=== PATIENT | female | born 1955 | race African-American/Black ===

== ENCOUNTER 2017-05-04 20:25 | Emergency (ER) | payer MEDICARE, OTHER ==
[~2017-05-04] VITALS: Ht 172.7 cm; Wt 100.0 kg
[~2017-05-04 20:25] MED LIST: ASPI-1159 PO; BENA1TAB18 PO; CHOL100046 PO; GABA-531 PO; GLYB5TAB7 PO; HYDR-523 PO; IBUP-2029 PO; INSU3INS6 SUBCUT; METF10002 PO; METHOCARBAMOL PO; METO10TA3 PO; NAPR500T7 PO; OMEP40CA34 PO; ONDA4TAB21 PO; PRAV40TA58 PO; ROSUVASTATIN CALCIUM PO; WOMEN S PROBIOTIC PO; [UNRECOGNIZED DRUG - OTHER] PO
[2017-05-04] MEDS ORDERED: LEVETIRACETAM 500MG PREMIX 100 ML IV ONE (22:00)
[2017-05-04 23:33] LABS: BASOPHILS % 0.9 % (0.0-2.0); EOSINOPHILS % 2.3 % (0.0-5.0); HEMATOCRIT. 38.4 % (36.0-48.0); HEMOGLOBIN. 13.1 g/dL (12.0-16.0); LYMPHOCYTES % 31.6 % (20.0-50.0); MEAN CORPUSCULAR HEMOGLOBIN 30.3 pg (28.0-32.0); MEAN CORPUSCULAR VOLUME 88.8 fL (81.0-99.0); MEAN PLATELET VOLUME 9.9 fl (7.4-10.4); MONOCYTES % 7.6 % (2.0-8.0); NEUTROPHILS % 57.6 % (40.0-76.0); PLATELET 196 x1000/uL (130-400); RED BLOOD CELL COUNT 4.32 mill/uL (4.2-5.4); RED CELL DISTRIBUTION WIDTH 13.5 % (11.6-14.6)
[2017-05-04 23:43] LABS: AMMONIA 39 uMol/L (<32)
[2017-05-04 23:47] LABS: CARBON DIOXIDE 25 mEq/L (21-32); CHLORIDE 105 mEq/L (98-107); CREATINE KINASE 114 IU/L (26-192)
[2017-05-05] LABS: CLARITY URINE CLOUDY (CLEAR); COLOR URINE YELLOW (YELLOW); GLUCOSE URINE 3+ (NEGATIVE); KETONES URINE NEGATIVE (NEGATIVE); LEUKOCYTE ESTERASE URINE 3+ (NEGATIVE); NITRITE URINE NEGATIVE (NEGATIVE); OCCULT BLOOD URINE 2+ (NEGATIVE); PROTEIN URINE 2+ (NEGATIVE)
[2017-05-05] MEDS ORDERED: LEVOFLOXACIN 750MG PREMIX 150 ML IV ONE (00:30)
[2017-05-05] MEDS ORDERED: ACETAMINOPHEN WITH CODEINE 300/30MG TABLET PO ONE (00:30)
[2017-05-05] MEDS ORDERED: ACETAMINOPHEN 325MG TABLET PO ONE (00:45)
[2017-05-05 01:42] VITALS: BP 132/64
== END 2017-05-05 02:32 | disposition home or self-care (01) ==
LOC: ER 20:30
DX: R56.9 Unspecified convulsions (principal); N28.9 Disorder of kidney and ureter, unspecified; N30.00 Acute cystitis without hematuria; E11.9 Type 2 diabetes mellitus without complications; J44.9 Chronic obstructive pulmonary disease, unspecified; I10 Essential (primary) hypertension; E78.00 Pure hypercholesterolemia, unspecified; Z79.82 Long term (current) use of aspirin; Z79.4 Long term (current) use of insulin; Z88.0 Allergy status to penicillin; Z88.5 Allergy status to narcotic agent; Z86.73 Personal history of transient ischemic attack (TIA), and cerebral infarction without residual deficits; Z95.0 Presence of cardiac pacemaker
CPT/HCPCS: 36415; 70450; 71010; 80053; 81001; 82140; 82550; 85025; 85610; 93005; 96365; 96366; 96367; 99285; J1953; J1956; 81003

== ENCOUNTER 2018-06-10 22:39 | Inpatient (IN) | payer MEDICARE, OTHER ==
[~2018-06-10] VITALS: Ht 172.7 cm; Wt 106.1 kg
[~2018-06-10 22:39] MED LIST changes: +METF-416 PO; -METF10002 PO
[2018-06-10 23:54] LABS: BG BASE EXCESS 2.8 mmol/L (-2.0-2.0); BG DEOXYHEMOGLOBIN 2.7 % (0.0-5.0); BG FRACTION INSPIRED OXYGEN 21; BG HCO3 ACT 28.4 mmol/L (22.0-26.0); BG METHEMOGLOBIN 0.1 % (0.0-1.5); BG OXYGEN SATURATION 97.3 % (92.0-98.5); BG OXYHEMOGLOBIN 96.2 % (94.0-97.0); BG PCO2 47.6 mmHg (35.0-45.0); BG PH 7.393 (7.350-7.450); BG PO2 101.8 mmHg (75.0-100.0); BG SAMPLE SITE RIGHT RADIAL; BG TOTAL HEMOGLOBIN 12.9 g/dL (12.0-18.0); BG VENT MODE ROOM AIR
[2018-06-11 00:06] LABS: BASOPHILS % 0.7 % (0.0-2.0); EOSINOPHILS % 3.2 % (0.0-5.0); HEMATOCRIT. 39.9 % (36.0-48.0); HEMOGLOBIN. 13.1 g/dL (12.0-16.0); LYMPHOCYTES % 44.3 % (20.0-50.0); MEAN CORPUSCULAR HEMOGLOBIN 29.3 pg (28.0-32.0); MEAN CORPUSCULAR VOLUME 89.5 fL (81.0-99.0); MEAN PLATELET VOLUME 9.9 fl (7.4-10.4); MONOCYTES % 9.3 % (2.0-8.0); NEUTROPHILS % 42.5 % (40.0-76.0); PLATELET 170 x1000/uL (130-400); RED BLOOD CELL COUNT 4.46 mill/uL (4.2-5.4); RED CELL DISTRIBUTION WIDTH 13.6 % (11.6-14.6)
[2018-06-11 00:12] LABS: CHLORIDE 105 mEq/L (98-107)
[2018-06-11 00:17] LABS: PROTHROMBIN TIME 10.2 sec (9.1-11.1)
[2018-06-11 00:19] LABS: ETHANOL BLOOD < 10 mg/dL
[2018-06-11] MEDS ORDERED: ACETAMINOPHEN 500MG TABLET PO ONE (01:45)
[2018-06-11 01:52] LABS: CLARITY URINE CLEAR (CLEAR); COLOR URINE YELLOW (YELLOW); KETONES URINE NEGATIVE (NEGATIVE); LEUKOCYTE ESTERASE URINE NEGATIVE (NEGATIVE); NITRITE URINE NEGATIVE (NEGATIVE); OCCULT BLOOD URINE 2+ (NEGATIVE); PH URINE 6.5 (4.5-8.0); PROTEIN URINE TRACE (NEGATIVE); SPECIFIC GRAVITY URINE 1.018 (1.005-1.030)
[2018-06-11 02:01] LABS: *COCAINE SCREEN URINE NEGATIVE (NEGATIVE); METHADONE URINE SCREEN NEGATIVE (NEGATIVE)
[2018-06-11 02:02] LABS: *AMPHETAMINES SCREEN URINE NEGATIVE (NEGATIVE); *BARBITURATES SCREEN URINE NEGATIVE (NEGATIVE); *BENZODIAZEPINES SCREEN URINE NEGATIVE (NEGATIVE); CANNABINOID URINE SCREEN NEGATIVE (NEGATIVE); OPIATES URINE SCREEN PRESUMTIVE POSITIVE (NEGATIVE); PHENCYCLIDINE URINE SCREEN NEGATIVE (NEGATIVE)
[2018-06-11] MEDS ORDERED: ALBUTEROL (0.5%) 2.5MG/0.5ML NEB HHN ONE (02:15)
[2018-06-11 04:22] VITALS: BP 137/56
[2018-06-11] MEDS ORDERED: HYDR-4009 PO (05:22)
[2018-06-11] MEDS ORDERED: LEVE1000 PO (05:23)
[2018-06-11] MEDS ORDERED: LYRICA PO (05:25)
[2018-06-11] MEDS ORDERED: INSU100I28 SQ (05:30)
[2018-06-11 05:31] VITALS: BP 137/56
[2018-06-11] MEDS ORDERED: DEXTROSE 50% WATER 50ML SYRINGE IV PRN (06:15)
[2018-06-11] MEDS: BLOOD SUGAR DIAGNOSTIC STRIP TEST SCH ×4 (07:20→21:00)
[2018-06-11] MEDS: OMEPRAZOLE 20MG CAPSULE EXTENDED RELEASE PO SCH (07:29)
[2018-06-11] MEDS ORDERED: LEVETIRACETAM 500MG TABLET PO NR (07:45)
[2018-06-11] MEDS: INSULIN LISPRO 100 UNITS/ML SUBCUT SCH ×4 (08:09→21:00)
[2018-06-11 08:46] VITALS: BP 102/51
[2018-06-11] MEDS ORDERED: ASPIRIN 81MG TABLET PO SCH (09:00)
[2018-06-11] MEDS ORDERED: LEVETIRACETAM 500MG TABLET PO SCH (09:00)
[2018-06-11] MEDS: INSULIN GLARGINE UD 100 UNITS/ML SYR SUBCUT SCH ×2 (10:49→22:06)
[2018-06-11 12:03] LABS: HEMATOCRIT 36.9 % (36.0-48.0); MEAN CORPUSCULAR HEMOGLOBIN 29.2 pg (28.0-32.0); MEAN CORPUSCULAR VOLUME 89.8 fL (81.0-99.0); PLATELET 165 x1000/uL (130-400); RED BLOOD CELL COUNT 4.11 mill/uL (4.2-5.4); RED CELL DISTRIBUTION WIDTH 13.9 % (11.6-14.6)
[2018-06-11 12:13] VITALS: BP 107/61
[2018-06-11] MEDS: HYDROCODONE/ACETAMINOPHEN 10/325MG TABLET PO PRN (12:46)
[2018-06-11] MEDS: CLOPIDOGREL 75MG TABLET PO SCH (16:15)
[2018-06-11 16:50] VITALS: BP 102/55
[2018-06-11] MEDS ORDERED: MEDICATION NOT ON FORMULARY EA (Pravastatin Sodium 1 TAB) PO SCH (17:00)
[2018-06-11] MEDS: ONDANSETRON 4MG ODT PO PRN (17:48)
[2018-06-11 20:00] VITALS: BP 108/58
[2018-06-11] MEDS: ATORVASTATIN CALCIUM 10MG TABLET PO SCH (22:05)
[2018-06-11] MEDS: LEVETIRACETAM 500MG/5ML CUP PO SCH (22:05)
[2018-06-12 00:04] VITALS: BP 106/59
[2018-06-12 04:17] VITALS: BP 117/70
[2018-06-12 06:51] LABS: HEMATOCRIT 37.2 % (36.0-48.0); HEMOGLOBIN 12.2 g/dL (12.0-16.0); MEAN CORPUSCULAR HEMOGLOBIN 29.4 pg (28.0-32.0); MEAN CORPUSCULAR VOLUME 89.4 fL (81.0-99.0); PLATELET 164 x1000/uL (130-400); RED BLOOD CELL COUNT 4.16 mill/uL (4.2-5.4); RED CELL DISTRIBUTION WIDTH 13.9 % (11.6-14.6)
[2018-06-12] MEDS: BLOOD SUGAR DIAGNOSTIC STRIP TEST SCH ×4 (07:02→21:35)
[2018-06-12] MEDS: OMEPRAZOLE 20MG CAPSULE EXTENDED RELEASE PO SCH (07:02)
[2018-06-12] MEDS: INSULIN LISPRO 100 UNITS/ML SUBCUT SCH ×4 (07:50→21:34)
[2018-06-12 09:36] LABS: T4 FREE 1.14 ng/dL (0.76-1.46)
[2018-06-12] MEDS: INSULIN GLARGINE UD 100 UNITS/ML SYR SUBCUT SCH ×2 (09:44→21:34)
[2018-06-12] MEDS: HYDROCODONE/ACETAMINOPHEN 10/325MG TABLET PO PRN ×2 (09:56→20:41)
[2018-06-12] MEDS: AMLODIPINE 5MG TABLET PO SCH (09:57)
[2018-06-12] MEDS: ASPIRIN 81MG TABLET PO SCH (09:57)
[2018-06-12] MEDS: CLOPIDOGREL 75MG TABLET PO SCH (09:57)
[2018-06-12] MEDS: LEVETIRACETAM 500MG/5ML CUP PO SCH ×2 (09:59→21:35)
[2018-06-12] MEDS ORDERED: IOHEXOL-350 100 ML BOTTLE ONE (14:10)
[2018-06-12] MEDS: ONDANSETRON 4MG ODT PO PRN (15:10)
[2018-06-12] MEDS ORDERED: SODIUM CHLORIDE 0.45% 1,000 ML IV SCH (16:15)
[2018-06-12 20:00] VITALS: BP 104/63
[2018-06-12] MEDS: ATORVASTATIN CALCIUM 10MG TABLET PO SCH (21:35)
[2018-06-13] VITALS (7 sets, daily range): BP systolic 107–134; BP diastolic 60–72
[2018-06-13] MEDS: BLOOD SUGAR DIAGNOSTIC STRIP TEST SCH ×3 (06:34→17:35)
[2018-06-13] MEDS: OMEPRAZOLE 20MG CAPSULE EXTENDED RELEASE PO SCH (06:34)
[2018-06-13] MEDS: INSULIN LISPRO 100 UNITS/ML SUBCUT SCH ×3 (06:49→17:35)
[2018-06-13] MEDS ORDERED: CHOLECALCIFEROL (D3) 1000 UNIT TABLET PO SCH (09:00)
[2018-06-13 09:35] LABS: HEMATOCRIT 40.3 % (36.0-48.0); HEMOGLOBIN 13.3 g/dL (12.0-16.0); MEAN CORPUSCULAR HEMOGLOBIN 29.4 pg (28.0-32.0); MEAN CORPUSCULAR VOLUME 88.9 fL (81.0-99.0); PLATELET 192 x1000/uL (130-400); RED BLOOD CELL COUNT 4.53 mill/uL (4.2-5.4); RED CELL DISTRIBUTION WIDTH 13.9 % (11.6-14.6)
[2018-06-13] MEDS: ONDANSETRON 4MG ODT PO PRN (09:41)
[2018-06-13] MEDS: LEVETIRACETAM 500MG/5ML CUP PO SCH (09:42)
[2018-06-13] MEDS: ASPIRIN 81MG TABLET PO SCH (09:43)
[2018-06-13] MEDS: CLOPIDOGREL 75MG TABLET PO SCH (09:43)
[2018-06-13] MEDS: AMLODIPINE 5MG TABLET PO SCH (09:43)
[2018-06-13] MEDS: INSULIN GLARGINE UD 100 UNITS/ML SYR SUBCUT SCH (10:20)
== END 2018-06-13 20:45 | disposition home health service (06) | DRG 101 ==
LOC: ER 22:39 → 6WST 06-11 01:49 → EDBEDREQDT 06-11 02:27 → EDBEDREQTM 06-11 02:27 → EDBEDREQ 06-11 02:27 → ENRESERV 06-11 03:21 → 6WST 06-11 04:45
PROVIDERS: ADMIT Internal Medicine; ATTEND Internal Medicine
DX: G40.909 Epilepsy, unspecified, not intractable, without status epilepticus (principal); D68.59 Other primary thrombophilia; E66.2 Morbid (severe) obesity with alveolar hypoventilation; I69.354 Hemiplegia and hemiparesis following cerebral infarction affecting left non-dominant side; E11.22 Type 2 diabetes mellitus with diabetic chronic kidney disease; N18.9 Chronic kidney disease, unspecified; I12.9 Hypertensive chronic kidney disease with stage 1 through stage 4 chronic kidney disease, or unspecified chronic kidney disease; R31.9 Hematuria, unspecified; M25.519 Pain in unspecified shoulder; I65.22 Occlusion and stenosis of left carotid artery; J44.9 Chronic obstructive pulmonary disease, unspecified; Z95.0 Presence of cardiac pacemaker; Z79.82 Long term (current) use of aspirin; Z79.4 Long term (current) use of insulin; Z68.35 Body mass index [BMI] 35.0-35.9, adult; Z88.0 Allergy status to penicillin; Z88.5 Allergy status to narcotic agent; Z79.899 Other long term (current) drug therapy
CPT/HCPCS: 36415; 36600; 70498; 71045; 80048; 80061; 80305; 82140; 82375; 82542; 82805; 82962; 83036; 83605; 84439; 84443; 84484; 85027; 92523; 93005; 93306; 93880; 93970; 94640; 97116; 97162; 97530; 99285; G0482; J1815; J7611; Q0162; Q9967

== ENCOUNTER 2019-06-04 19:25 | Inpatient (IN) | payer MEDICARE, MEDICAID ==
[~2019-06-04] VITALS: Ht 162.6 cm; Wt 116.6 kg
[~2019-06-04 19:25] MED LIST changes: -ASPI-1159 PO; +ASPI-1393 PO; -GABA-531 PO; +HYDR-4009 PO; -HYDR-523 PO; -IBUP-2029 PO; +INSU100I28 SQ; +LEVE1000 PO; +LYRICA PO; -METF-416 PO; -METHOCARBAMOL PO; -METO10TA3 PO; -NAPR500T7 PO; -ROSUVASTATIN CALCIUM PO; -WOMEN S PROBIOTIC PO; -[UNRECOGNIZED DRUG - OTHER] PO
[2019-06-04] MEDS ORDERED: LEVETIRACETAM 1000MG/100ML 100 ML IV ONE ×2 (20:30)
[2019-06-04] MEDS ORDERED: SODIUM CHLORIDE 0.9% 1,000 ML IV ONE (20:30)
[2019-06-04 20:57] LABS: BASOPHILS % 0.5 % (0.0-2.0); EOSINOPHILS % 2.6 % (0.0-5.0); HEMATOCRIT. 40.9 % (36.0-48.0); HEMOGLOBIN. 13.4 g/dL (12.0-16.0); LYMPHOCYTES % 41.2 % (20.0-50.0); MEAN CORPUSCULAR HEMOGLOBIN 29.1 pg (28.0-32.0); MEAN CORPUSCULAR VOLUME 88.5 fL (81.0-99.0); MONOCYTES % 10.4 % (2.0-8.0); NEUTROPHILS % 45.3 % (40.0-76.0); PLATELET 157 x1000/uL (130-400); RED BLOOD CELL COUNT 4.62 mill/uL (4.2-5.4); RED CELL DISTRIBUTION WIDTH 14.6 % (11.6-14.6)
[2019-06-04 20:59] LABS: CHLORIDE 106 mEq/L (98-107)
[2019-06-04 21:02] LABS: PROTHROMBIN TIME 10.1 sec (9.6-11.0)
[2019-06-04 21:03] LABS: ETHANOL BLOOD < 10 mg/dL
[2019-06-04 21:06] LABS: LDL CHOLESTEROL 67 mg/dL (5-100)
[2019-06-04] MEDS ORDERED: HYDRALAZINE 20MG/ML VIAL IV ONE (21:15)
[2019-06-04] MEDS: LEVETIRACETAM 1000MG/100ML 100 ML IV NR ×2 (21:23→22:24)
[2019-06-04] MEDS ORDERED: KETOROLAC 15MG/ML VIAL IV ONE (22:15)
[2019-06-04] MEDS ORDERED: ASPIRIN 300MG SUPP PR ONE (22:15)
[2019-06-04] MEDS ORDERED: ONDANSETRON HCL 4MG/2ML INJ IV PRN (23:00)
[2019-06-04] MEDS ORDERED: DEXTROSE 50% WATER 50ML SYRINGE IV PRN (23:15)
[2019-06-04] MEDS ORDERED: LORAZEPAM 2MG/ML CPJ IV PRN (23:24)
[2019-06-04 23:25] LABS: CLARITY URINE CLEAR (CLEAR); COLOR URINE YELLOW (YELLOW); KETONES URINE NEGATIVE (NEGATIVE); LEUKOCYTE ESTERASE URINE 3+ (NEGATIVE); NITRITE URINE NEGATIVE (NEGATIVE); OCCULT BLOOD URINE TRACE (NEGATIVE); PH URINE 5.5 (4.5-8.0); PROTEIN URINE 1+ (NEGATIVE); SPECIFIC GRAVITY URINE 1.022 (1.005-1.030)
[2019-06-04] MEDS ORDERED: CLONIDINE 0.2MG TABLET PO PRN (23:25)
[2019-06-04 23:49] LABS: *AMPHETAMINES SCREEN URINE NEGATIVE (NEGATIVE); *BARBITURATES SCREEN URINE NEGATIVE (NEGATIVE)
[2019-06-04 23:50] LABS: *BENZODIAZEPINES SCREEN URINE NEGATIVE (NEGATIVE); *COCAINE SCREEN URINE NEGATIVE (NEGATIVE); CANNABINOID URINE SCREEN NEGATIVE (NEGATIVE); METHADONE URINE SCREEN NEGATIVE (NEGATIVE); OPIATES URINE SCREEN PRESUMTIVE POSITIVE (NEGATIVE)
[2019-06-04 23:51] LABS: PHENCYCLIDINE URINE SCREEN NEGATIVE (NEGATIVE)
[2019-06-05] MEDS ORDERED: IOHEXOL-350 100 ML BOTTLE ONE (02:05)
[2019-06-05 05:26] LABS: BASOPHILS % 0.6 % (0.0-2.0); EOSINOPHILS % 2.6 % (0.0-5.0); HEMATOCRIT. 40.3 % (36.0-48.0); HEMOGLOBIN. 13.3 g/dL (12.0-16.0); LYMPHOCYTES % 41.4 % (20.0-50.0); MONOCYTES % 10.6 % (2.0-8.0); NEUTROPHILS % 44.8 % (40.0-76.0); PLATELET 157 x1000/uL (130-400); RED BLOOD CELL COUNT 4.59 mill/uL (4.2-5.4); RED CELL DISTRIBUTION WIDTH 14.5 % (11.6-14.6)
[2019-06-05 05:30] LABS: CHLORIDE 110 mEq/L (98-107)
[2019-06-05 09:00] VITALS: BP 117/72
[2019-06-05] MEDS: INSULIN LISPRO 100 UNITS/ML SUBCUT SCH ×4 (09:00→21:32)
[2019-06-05] MEDS: BLOOD SUGAR DIAGNOSTIC STRIP TEST SCH ×4 (09:00→21:18)
[2019-06-05] MEDS: HEPARIN 5000 UNITS/ML VIAL SUBCUT SCH ×2 (10:31→21:18)
[2019-06-05 11:23] VITALS: BP 117/72
[2019-06-05 12:00] VITALS: BP 123/57
[2019-06-05] MEDS ORDERED: ASPIRIN 81MG EC TABLET PO SCH (13:30)
[2019-06-05] MEDS ORDERED: LEVETIRACETAM 500MG/5ML CUP PO SCH (13:30)
[2019-06-05 16:00] VITALS: BP 136/65
[2019-06-05 20:00] VITALS: BP 129/72
[2019-06-05] MEDS: ACETAMINOPHEN 325MG TABLET PO PRN (20:48)
[2019-06-05] MEDS: LEVETIRACETAM 500MG/5ML CUP PO SCH (21:18)
[2019-06-06 00:22] VITALS: BP 129/62
[2019-06-06] MEDS ORDERED: MORPHINE SULFATE 2 MG/ML CPJ (NOT FOR IM USE) IV NR (01:45)
[2019-06-06] MEDS ORDERED: INSULIN GLARGINE UD 100 UNITS/ML SYR SUBCUT NR (03:00)
[2019-06-06] MEDS ORDERED: ASPIRIN 325MG TABLET PO NR (03:30)
[2019-06-06 03:32] LABS: BASOPHILS % 0.5 % (0.0-2.0); EOSINOPHILS % 3.5 % (0.0-5.0); HEMATOCRIT. 38.6 % (36.0-48.0); HEMOGLOBIN. 12.7 g/dL (12.0-16.0); LYMPHOCYTES % 44.7 % (20.0-50.0); MEAN PLATELET VOLUME 9.4 fl (7.4-10.4); MONOCYTES % 9.4 % (2.0-8.0); NEUTROPHILS % 41.9 % (40.0-76.0); PLATELET 147 x1000/uL (130-400); RED BLOOD CELL COUNT 4.38 mill/uL (4.2-5.4)
[2019-06-06 04:22] VITALS: BP 125/52
[2019-06-06] MEDS: INSULIN LISPRO 100 UNITS/ML SUBCUT SCH ×2 (06:22→12:11)
[2019-06-06] MEDS: BLOOD SUGAR DIAGNOSTIC STRIP TEST SCH ×2 (06:25→12:08)
[2019-06-06 08:00] VITALS: BP 145/70
[2019-06-06] MEDS: LEVETIRACETAM 500MG/5ML CUP PO SCH (09:19)
[2019-06-06 11:28] LABS: PROTHROMBIN TIME 10.7 sec (9.6-11.0)
[2019-06-06] MEDS: HEPARIN 5000 UNITS/ML VIAL SUBCUT SCH (11:34)
[2019-06-06] MEDS: ACETAMINOPHEN 325MG TABLET PO PRN (16:41)
[2019-06-06 16:45] VITALS: BP 131/80
[2019-06-06] MEDS ORDERED: INSULIN GLARGINE UD 100 UNITS/ML SYR SUBCUT SCH (22:00)
[2019-06-07] MEDS ORDERED: INSULIN GLARGINE UD 100 UNITS/ML SYR SUBCUT SCH (10:00)
== END 2019-06-06 17:17 | disposition home or self-care (01) | DRG 101 ==
LOC: ER 19:25 → 5WST 22:52 → EDBEDREQ 22:55 → EDBEDREQSVC 06-05 05:40 → ENRESERV 06-05 07:08
PROVIDERS: ADMIT Internal Medicine; ATTEND Internal Medicine
DX: G40.409 Other generalized epilepsy and epileptic syndromes, not intractable, without status epilepticus (principal); Z86.73 Personal history of transient ischemic attack (TIA), and cerebral infarction without residual deficits; E78.5 Hyperlipidemia, unspecified; E11.9 Type 2 diabetes mellitus without complications; J45.909 Unspecified asthma, uncomplicated; Z88.0 Allergy status to penicillin; Z79.4 Long term (current) use of insulin; Z79.899 Other long term (current) drug therapy; I25.2 Old myocardial infarction
CPT/HCPCS: 36415; 70496; 71045; 80048; 80061; 80305; 80320; 81003; 82962; 83036; 83721; 83735; 84484; 93005; 96361; 96365; 96375; 99291; C1893; J0360; J1644; J1815; J1885; J1953; J7030; Q9967; G0480

== ENCOUNTER 2019-07-20 09:08 | Emergency (ER) | payer OTHER, MEDICAID ==
[~2019-07-20] VITALS: Ht 165.1 cm; Wt 109.0 kg
[~2019-07-20 09:08] MED LIST changes: -ASPI-1393 PO; +ASPI-1497 PO; +OMEP40CA12 PO; -OMEP40CA34 PO
[2019-07-20] MEDS ORDERED: ONDANSETRON HCL 4MG/2ML INJ IV STA (10:27)
[2019-07-20] MEDS ORDERED: MORPHINE SULFATE 4 MG/ML CPJ (NOT FOR IM USE) IV STA (10:27)
[2019-07-20 10:31] LABS: CLARITY URINE TURBID (CLEAR); COLOR URINE YELLOW (YELLOW); KETONES URINE NEGATIVE (NEGATIVE); LEUKOCYTE ESTERASE URINE 3+ (NEGATIVE); NITRITE URINE NEGATIVE (NEGATIVE); OCCULT BLOOD URINE 2+ (NEGATIVE); PROTEIN URINE 2+ (NEGATIVE); SPECIFIC GRAVITY URINE 1.017 (1.005-1.030)
[2019-07-20 10:32] LABS: BASOPHILS % 0.8 % (0.0-2.0); HEMATOCRIT. 41.3 % (36.0-48.0); HEMOGLOBIN. 13.4 g/dL (12.0-16.0); LYMPHOCYTES % 36.9 % (20.0-50.0); MEAN CORPUSCULAR VOLUME 89.5 fL (81.0-99.0); MEAN PLATELET VOLUME 10.3 fl (7.4-10.4); MONOCYTES % 7.9 % (2.0-8.0); NEUTROPHILS % 51.4 % (40.0-76.0); PLATELET 174 x1000/uL (130-400); RED BLOOD CELL COUNT 4.62 mill/uL (4.2-5.4); RED CELL DISTRIBUTION WIDTH 14.7 % (11.6-14.6)
[2019-07-20 10:34] LABS: CHLORIDE 107 mEq/L (98-107)
[2019-07-20] MEDS ORDERED: ONDANSETRON HCL 4MG/2ML INJ IV ONE (13:30)
[2019-07-20] MEDS ORDERED: MORPHINE SULFATE 4 MG/ML CPJ (NOT FOR IM USE) IV ONE (13:30)
[2019-07-20] MEDS ORDERED: LEVOFLOXACIN 500MG TABLET PO ONE (13:30)
[2019-07-20 13:48] VITALS: BP 123/82
== END 2019-07-20 14:27 | disposition short-term general hospital (02) ==
LOC: ER 09:51 → CANBEDREQ 15:18
DX: R07.89 Other chest pain (principal); I25.10 Atherosclerotic heart disease of native coronary artery without angina pectoris; J44.9 Chronic obstructive pulmonary disease, unspecified; E11.9 Type 2 diabetes mellitus without complications; I10 Essential (primary) hypertension; Z87.891 Personal history of nicotine dependence; Z79.82 Long term (current) use of aspirin; Z79.4 Long term (current) use of insulin; Z88.0 Allergy status to penicillin; E78.5 Hyperlipidemia, unspecified
CPT/HCPCS: 36415; 71045; 80053; 81003; 83690; 83880; 84484; 85025; 85379; 87086; 93005; 93970; 96374; 96375; 96376; 99285; J2270; J2405

== ENCOUNTER 2020-04-06 18:10 | Emergency (ER) | payer MEDICARE, MEDICAID ==
[~2020-04-06] VITALS: Ht 167.6 cm; Wt 113.0 kg
[2020-04-06] MEDS ORDERED: SODIUM CHLORIDE 0.9% 500 ML IV ONE (18:45)
[2020-04-06] MEDS ORDERED: LEVETIRACETAM 1000MG/100ML 100 ML IV ONE (18:45)
[2020-04-06 19:07] LABS: BASOPHILS % 0.9 % (0.0-2.0); EOSINOPHILS % 2.9 % (0.0-5.0); HEMATOCRIT. 41.9 % (36.0-48.0); HEMOGLOBIN. 13.8 g/dL (12.0-16.0); LYMPHOCYTES % 34.4 % (20.0-50.0); MEAN CORPUSCULAR HEMOGLOBIN 29.2 pg (28.0-32.0); MEAN CORPUSCULAR VOLUME 88.6 fL (81.0-99.0); MEAN PLATELET VOLUME 10.2 fl (7.4-10.4); MONOCYTES % 7.7 % (2.0-8.0); NEUTROPHILS % 54.1 % (40.0-76.0); PLATELET 168 x1000/uL (130-400); RED BLOOD CELL COUNT 4.73 mill/uL (4.2-5.4); RED CELL DISTRIBUTION WIDTH 14.5 % (11.6-14.6)
[2020-04-06 19:15] LABS: CHLORIDE 107 mEq/L (98-107)
[2020-04-06 20:31] LABS: CLARITY URINE CLEAR (CLEAR); COLOR URINE YELLOW (YELLOW); KETONES URINE NEGATIVE (NEGATIVE); LEUKOCYTE ESTERASE URINE TRACE (NEGATIVE); NITRITE URINE NEGATIVE (NEGATIVE); OCCULT BLOOD URINE 1+ (NEGATIVE); PH URINE 5.5 (4.5-8.0); PROTEIN URINE 1+ (NEGATIVE); UROBILINOGEN URINE 0.2 E.U./dL (0.2-1.0)
[2020-04-06] MEDS ORDERED: SULFAMETHOXAZOLE/TRIMETHOPRIM 800/160MG TABLET PO NR (22:00)
[2020-04-06 22:20] VITALS: BP 140/61
== END 2020-04-06 22:21 | disposition home or self-care (01) ==
LOC: ER 18:10
DX: R56.9 Unspecified convulsions (principal); N39.0 Urinary tract infection, site not specified; J44.1 Chronic obstructive pulmonary disease with (acute) exacerbation; I10 Essential (primary) hypertension; E11.9 Type 2 diabetes mellitus without complications; Z88.0 Allergy status to penicillin; Z79.899 Other long term (current) drug therapy; Z79.82 Long term (current) use of aspirin
CPT/HCPCS: 36415; 80053; 81003; 85025; 93005; 96365; 99284; J1953; J7030

== ENCOUNTER 2021-05-07 18:13 | Inpatient (IN) | payer OTHER, MEDICAID ==
[~2021-05-07] VITALS: Ht 170.2 cm; Wt 115.2 kg
[~2021-05-07 18:13] MED LIST changes: -OMEP40CA12 PO; +OMEP40CA20 PO
[2021-05-07] MEDS ORDERED: LEVETIRACETAM 1000MG PREMIX 100 ML IV ONE (19:45)
[2021-05-07 20:43] LABS: BASOPHILS % 0.6 % (0.0-2.0); EOSINOPHILS % 1.6 % (0.0-5.0); HEMATOCRIT. 40.7 % (36.0-48.0); HEMOGLOBIN. 13.4 g/dL (12.0-16.0); LYMPHOCYTES % 37.7 % (20.0-50.0); MEAN CORPUSCULAR HEMOGLOBIN 29.9 pg (28.0-32.0); MEAN CORPUSCULAR VOLUME 90.7 fL (81.0-99.0); MEAN PLATELET VOLUME 9.9 fl (7.4-10.4); MONOCYTES % 7.8 % (2.0-8.0); NEUTROPHILS % 52.3 % (40.0-76.0); PLATELET 173 x1000/uL (130-400); RED BLOOD CELL COUNT 4.49 mill/uL (4.2-5.4); RED CELL DISTRIBUTION WIDTH 14.7 % (11.6-14.6)
[2021-05-07 20:48] LABS: CHLORIDE 108 mEq/L (98-107)
[2021-05-07 20:51] LABS: PROTHROMBIN TIME 11.2 sec (9.6-11.0)
[2021-05-07 20:53] LABS: ETHANOL BLOOD < 10 mg/dL
[2021-05-07] MEDS ORDERED: IOHEXOL-350 100 ML BOTTLE ONE (21:59)
[2021-05-07] MEDS ORDERED: ACETAMINOPHEN 325MG TABLET PO ONE (22:15)
[2021-05-08] MEDS ORDERED: HYDROCODONE/ACETAMINOPHEN 5/325MG TABLET PO ONE (01:45)
[2021-05-08 02:38] LABS: CLARITY URINE CLEAR (CLEAR); COLOR URINE YELLOW (YELLOW); KETONES URINE NEGATIVE (NEGATIVE); LEUKOCYTE ESTERASE URINE NEGATIVE (NEGATIVE); NITRITE URINE NEGATIVE (NEGATIVE); OCCULT BLOOD URINE TRACE (NEGATIVE); PH URINE 5.5 (4.5-8.0); PROTEIN URINE 2+ (NEGATIVE); SPECIFIC GRAVITY URINE 1.049 (1.005-1.030)
[2021-05-08 02:47] LABS: *AMPHETAMINES SCREEN URINE NEGATIVE (NEGATIVE); *BARBITURATES SCREEN URINE NEGATIVE (NEGATIVE); *BENZODIAZEPINES SCREEN URINE NEGATIVE (NEGATIVE); *COCAINE SCREEN URINE NEGATIVE (NEGATIVE)
[2021-05-08 02:48] LABS: CANNABINOID URINE SCREEN PRESUMTIVE POSITIVE (NEGATIVE); METHADONE URINE SCREEN NEGATIVE (NEGATIVE); OPIATES URINE SCREEN NEGATIVE (NEGATIVE); PHENCYCLIDINE URINE SCREEN NEGATIVE (NEGATIVE)
[2021-05-08 11:00] VITALS: BP 113/61
[2021-05-08] MEDS ORDERED: ATEN-42 PO (11:12)
[2021-05-08] MEDS ORDERED: [UNRECOGNIZED DRUG - OTHER] PO (11:12)
[2021-05-08] MEDS ORDERED: OMEP20CA14 PO (11:12)
[2021-05-08] MEDS ORDERED: LIRA0.6P2 SQ (11:12)
[2021-05-08 12:00] VITALS: BP 133/61
[2021-05-08] MEDS ORDERED: ACETAMINOPHEN 325MG TABLET PO PRN (12:00)
[2021-05-08] MEDS ORDERED: LORAZEPAM 2MG/ML CPJ IV PRN (12:00)
[2021-05-08] MEDS: INSULIN LISPRO 100 UNITS/ML SUBCUT SCH ×3 (12:06→21:15)
[2021-05-08] MEDS: BLOOD SUGAR DIAGNOSTIC STRIP TEST SCH ×3 (12:06→21:16)
[2021-05-08] MEDS ORDERED: DEXTROSE 50% WATER 50ML SYRINGE IV PRN (12:15)
[2021-05-08 16:00] VITALS: BP 140/70
[2021-05-08] MEDS ORDERED: LYRICA 150 MG PO SCH (18:15)
[2021-05-08] MEDS: TRAMADOL 50MG TABLET PO PRN (18:26)
[2021-05-08] MEDS ORDERED: NALOXONE HCL 0.4MG/ML VIAL IV PRN (19:00)
[2021-05-08 20:00] VITALS: BP 101/57
[2021-05-08] MEDS ORDERED: LEVETIRACETAM 500MG TABLET PO SCH ×2 (21:00)
[2021-05-08] MEDS ORDERED: INSULIN GLARGINE HUM REC ANLOG 50 UNIT SQ SCH (21:00)
[2021-05-08] MEDS ORDERED: [UNRECOGNIZED DRUG - OTHER] SQ SCH (21:00)
[2021-05-08] MEDS ORDERED: ATORVASTATIN CALCIUM 10MG TABLET PO SCH (21:00)
[2021-05-08] MEDS: LEVETIRACETAM 500MG TABLET PO SCH (21:12)
[2021-05-08] MEDS: LEVETIRACETAM 250MG TABLET PO SCH (21:13)
[2021-05-08] MEDS: PREGABALIN 75MG CAPSULE PO SCH (21:14)
[2021-05-08 22:00] VITALS: BP 115/59
[2021-05-08] MEDS ORDERED: INSULIN GLARGINE UD 100 UNITS/ML SYR SUBCUT SCH (22:00)
[2021-05-09] VITALS (11 sets, daily range): BP systolic 101–127; BP diastolic 52–69
[2021-05-09] MEDS: TRAMADOL 50MG TABLET PO PRN ×2 (04:20→10:28)
[2021-05-09] MEDS: BLOOD SUGAR DIAGNOSTIC STRIP TEST SCH ×3 (07:30→17:33)
[2021-05-09] MEDS ORDERED: OMEPRAZOLE 20MG CAPSULE EXTENDED RELEASE PO SCH (09:00)
[2021-05-09] MEDS ORDERED: INSULIN GLARGINE HUM REC ANLOG 40 UNIT SUBCUT SCH (09:00)
[2021-05-09] MEDS ORDERED: [UNRECOGNIZED DRUG - OTHER] PO SCH (09:00)
[2021-05-09] MEDS: LEVETIRACETAM 250MG TABLET PO SCH (09:00)
[2021-05-09] MEDS ORDERED: [UNRECOGNIZED DRUG - OTHER] SUBCUT SCH (09:00)
[2021-05-09] MEDS ORDERED: MEDICATION NOT ON FORMULARY EA (Levetiracetam (Keppra) 1,000 MG) PO SCH (09:00)
[2021-05-09] MEDS ORDERED: FAMOTIDINE 20MG TABLET PO SCH (09:00)
[2021-05-09] MEDS ORDERED: ONDANSETRON 4MG ODT PO SCH (09:00)
[2021-05-09] MEDS ORDERED: ATENOLOL 25MG TABLET PO SCH (09:00)
[2021-05-09] MEDS ORDERED: ASPIRIN 81MG EC TABLET PO SCH (09:00)
[2021-05-09] MEDS ORDERED: INSULIN GLARGINE UD 100 UNITS/ML SYR SUBCUT SCH (10:00)
[2021-05-09] MEDS: LEVETIRACETAM 500MG TABLET PO SCH (10:25)
[2021-05-09] MEDS: PREGABALIN 75MG CAPSULE PO SCH (10:27)
[2021-05-09] MEDS: INSULIN LISPRO 100 UNITS/ML SUBCUT SCH ×3 (10:30→18:29)
[2021-05-09 12:31] LABS: BASOPHILS % 0.7 % (0.0-2.0); EOSINOPHILS % 2.8 % (0.0-5.0); HEMATOCRIT. 37.3 % (36.0-48.0); HEMOGLOBIN. 12.1 g/dL (12.0-16.0); LYMPHOCYTES % 33.7 % (20.0-50.0); MEAN CORPUSCULAR HEMOGLOBIN 29.5 pg (28.0-32.0); MEAN CORPUSCULAR VOLUME 91.1 fL (81.0-99.0); MEAN PLATELET VOLUME 9.9 fl (7.4-10.4); MONOCYTES % 7.5 % (2.0-8.0); NEUTROPHILS % 55.3 % (40.0-76.0); PLATELET 144 x1000/uL (130-400); RED BLOOD CELL COUNT 4.09 mill/uL (4.2-5.4); RED CELL DISTRIBUTION WIDTH 14.1 % (11.6-14.6)
[2021-05-09 12:39] LABS: CHLORIDE 105 mEq/L (98-107)
[2021-05-09] MEDS: ONDANSETRON HCL 4MG/2ML INJ IV PRN ×2 (12:44→18:09)
[2021-05-09 12:46] LABS: LDL CHOLESTEROL 53 mg/dL (5-100)
[2021-05-09 12:47] LABS: HDL CHOLESTEROL 49 mg/dL (40-59)
[2021-05-09 12:48] LABS: T4 FREE 1.18 ng/dL (0.76-1.46)
[2021-05-09] MEDS ORDERED: LEVE1000 PO (14:44)
[2021-05-09] MEDS ORDERED: MEDICATION NOT ON FORMULARY EA (Pravastatin Sodium 1 TAB) PO SCH (17:00)
[2021-05-09] MEDS ORDERED: LIRAGLUTIDE SQ SCH (18:00)
[2021-05-09] MEDS ORDERED: ENTRESTO PO SCH (21:00)
== END 2021-05-09 22:59 | disposition home or self-care (01) | DRG 101 ==
LOC: ER 18:13 → 5EST 05-08 00:47 → EDBEDREQ 05-08 00:53 → EDBEDREQSVC 05-08 00:53 → EDBEDREQDT 05-08 00:53 → EDBEDREQTM 05-08 00:53 → ENRESERV 05-08 07:40 → ER 05-08 10:14
PROVIDERS: ADMIT Internal Medicine; ATTEND Internal Medicine
DX: G40.409 Other generalized epilepsy and epileptic syndromes, not intractable, without status epilepticus (principal); N17.9 Acute kidney failure, unspecified; Z68.41 Body mass index [BMI] 40.0-44.9, adult; J44.1 Chronic obstructive pulmonary disease with (acute) exacerbation; E11.9 Type 2 diabetes mellitus without complications; E87.8 Other disorders of electrolyte and fluid balance, not elsewhere classified; I25.10 Atherosclerotic heart disease of native coronary artery without angina pectoris; E66.01 Morbid (severe) obesity due to excess calories; I12.9 Hypertensive chronic kidney disease with stage 1 through stage 4 chronic kidney disease, or unspecified chronic kidney disease; N18.9 Chronic kidney disease, unspecified; Z86.73 Personal history of transient ischemic attack (TIA), and cerebral infarction without residual deficits; Z79.82 Long term (current) use of aspirin; Z95.0 Presence of cardiac pacemaker; Z88.0 Allergy status to penicillin
CPT/HCPCS: 36415; 70496; 70498; 71045; 80053; 80061; 80305; 80320; 81003; 82962; 84439; 84443; 84484; 85025; 93005; 97162; 99285; J1815; J1953; J2060; J2405; Q0162; Q9967; G0480